=== PATIENT | male | born 1965 | race Caucasian/White ===

== ENCOUNTER 2020-11-30 07:52 | Outpatient (CLI) | payer OTHER | END 2020-11-30 07:53 | disposition home or self-care (01) | LOC: CSHULT 07:52 | PROVIDERS: ATTEND Nurse Practitioner Family | DX: K76.89 Other specified diseases of liver (principal); K80.20 Calculus of gallbladder without cholecystitis without obstruction | CPT/HCPCS: 76705 ==

== ENCOUNTER 2022-01-07 10:38 | Outpatient (CLI) | payer OTHER ==
[~2022-01-07 10:38] MED LIST: Iopamidol 300 61% 100 ML VIAL FS ONE
== END 2022-01-07 10:39 | disposition home or self-care (01) ==
LOC: CSHCT 10:38
PROVIDERS: ATTEND Nurse Practitioner Family
DX: R91.1 Solitary pulmonary nodule (principal)
CPT/HCPCS: 71260